=== PATIENT | male | born 1955 | race Two or more races ===

== ENCOUNTER → 2024-11-21 | Outpatient (CLI) | payer MEDICARE, MEDICAID, SELFPAY | END | disposition home or self-care (01) | LOC: SWHD 09:02 | PROVIDERS: Visit Provider Student in an Organized Health Care Education/Training Program | DX: L97.821 Non-pressure chronic ulcer of other part of left lower leg limited to breakdown of skin (principal); S81.802A Unspecified open wound, left lower leg, initial encounter; X58.XXXA Exposure to other specified factors, initial encounter; E11.40 Type 2 diabetes mellitus with diabetic neuropathy, unspecified; I10 Essential (primary) hypertension | CPT/HCPCS: 99214; A9270; G0463 ==

== ENCOUNTER → 2024-12-05 | Outpatient (CLI) | payer MEDICARE, MEDICAID, SELFPAY | END | disposition home or self-care (01) | LOC: SWHD 09:53 | PROVIDERS: Visit Provider Student in an Organized Health Care Education/Training Program | DX: E11.622 Type 2 diabetes mellitus with other skin ulcer (principal); L97.821 Non-pressure chronic ulcer of other part of left lower leg limited to breakdown of skin; S81.802A Unspecified open wound, left lower leg, initial encounter; X58.XXXA Exposure to other specified factors, initial encounter; E11.40 Type 2 diabetes mellitus with diabetic neuropathy, unspecified; I10 Essential (primary) hypertension | CPT/HCPCS: 99213; G0463 ==

== ENCOUNTER → 2024-12-19 | Outpatient (CLI) | payer MEDICARE, MEDICAID, SELFPAY | END | disposition home or self-care (01) | PROVIDERS: PCP Internal Medicine; Referring Provider Internal Medicine; Visit Provider Student in an Organized Health Care Education/Training Program | DX: E11.622 Type 2 diabetes mellitus with other skin ulcer (principal); L97.821 Non-pressure chronic ulcer of other part of left lower leg limited to breakdown of skin; S81.802A Unspecified open wound, left lower leg, initial encounter; X58.XXXA Exposure to other specified factors, initial encounter; E11.40 Type 2 diabetes mellitus with diabetic neuropathy, unspecified; I10 Essential (primary) hypertension | CPT/HCPCS: 17250; A9270 ==

== ENCOUNTER → 2025-01-07 | Outpatient (CLI) | payer MEDICARE, MEDICAID, SELFPAY ==
--- NOTE | 2025-01-07 | XR_ITS ---
Examination: AP lateral chest 2 views Technique one AP lateral chest 2 views Exam date and time: 2024 1227 hrs. Indications: Coughing shortness of breath beginning 4 days ago. Findings: Opacity left base posteriorly consistent with pneumonia Mild vascular congestion Mild enlargement cardiac contour CABG Impression: Early pneumonia left base
== END | disposition home or self-care (01) ==
LOC: CDIM 11:15
PROVIDERS: PCP Internal Medicine; Referring Provider Nurse Practitioner Family; Visit Provider Nurse Practitioner Family
DX: J18.9 Pneumonia, unspecified organism (principal)
CPT/HCPCS: 71046

== ENCOUNTER → 2025-01-14 | Outpatient (CLI) | payer MEDICARE, MEDICAID, SELFPAY | END | disposition home or self-care (01) | LOC: SWHD 08:43 | PROVIDERS: Visit Provider Student in an Organized Health Care Education/Training Program | DX: E11.622 Type 2 diabetes mellitus with other skin ulcer (principal); S89.92XA Unspecified injury of left lower leg, initial encounter; X58.XXXA Exposure to other specified factors, initial encounter; L97.821 Non-pressure chronic ulcer of other part of left lower leg limited to breakdown of skin; M17.0 Bilateral primary osteoarthritis of knee; M19.042 Primary osteoarthritis, left hand; M19.041 Primary osteoarthritis, right hand; F17.200 Nicotine dependence, unspecified, uncomplicated; N18.32 Chronic kidney disease, stage 3b; R60.0 Localized edema; I73.9 Peripheral vascular disease, unspecified; E66.9 Obesity, unspecified | CPT/HCPCS: 99212; G0463 ==

== ENCOUNTER → 2025-03-31 | Outpatient (CLI) | payer MEDICARE, SELFPAY | END | disposition home or self-care (01) | PROVIDERS: PCP Internal Medicine; Referring Provider Internal Medicine; Visit Provider Student in an Organized Health Care Education/Training Program | DX: I87.312 Chronic venous hypertension (idiopathic) with ulcer of left lower extremity (principal); E11.69 Type 2 diabetes mellitus with other specified complication; L97.821 Non-pressure chronic ulcer of other part of left lower leg limited to breakdown of skin; L97.822 Non-pressure chronic ulcer of other part of left lower leg with fat layer exposed; I73.9 Peripheral vascular disease, unspecified; I10 Essential (primary) hypertension | CPT/HCPCS: 17250; 99213; A9270; G0463 ==

== ENCOUNTER → 2025-04-03 | Outpatient (CLI) | payer MEDICARE, MEDICAID, SELFPAY | END | disposition home or self-care (01) | LOC: SWHD 08:35 | PROVIDERS: PCP Internal Medicine; Referring Provider Internal Medicine; Visit Provider Student in an Organized Health Care Education/Training Program | DX: I87.312 Chronic venous hypertension (idiopathic) with ulcer of left lower extremity (principal); E11.69 Type 2 diabetes mellitus with other specified complication; L97.821 Non-pressure chronic ulcer of other part of left lower leg limited to breakdown of skin; L97.822 Non-pressure chronic ulcer of other part of left lower leg with fat layer exposed; I73.9 Peripheral vascular disease, unspecified; I10 Essential (primary) hypertension | CPT/HCPCS: 29581; A9270 ==

== ENCOUNTER → 2025-04-09 | Outpatient (CLI) | payer MEDICARE, MEDICAID, SELFPAY | END | disposition home or self-care (01) | LOC: SWHD 11:01 | PROVIDERS: PCP Internal Medicine; Referring Provider Internal Medicine; Visit Provider Student in an Organized Health Care Education/Training Program | DX: I87.312 Chronic venous hypertension (idiopathic) with ulcer of left lower extremity (principal); E11.69 Type 2 diabetes mellitus with other specified complication; L97.821 Non-pressure chronic ulcer of other part of left lower leg limited to breakdown of skin; L97.822 Non-pressure chronic ulcer of other part of left lower leg with fat layer exposed; I73.9 Peripheral vascular disease, unspecified; I10 Essential (primary) hypertension | CPT/HCPCS: 29581 ==

== ENCOUNTER → 2025-04-17 | Outpatient (CLI) | payer MEDICARE, MEDICAID, SELFPAY | END | disposition home or self-care (01) | PROVIDERS: PCP Internal Medicine; Referring Provider Internal Medicine; Visit Provider Student in an Organized Health Care Education/Training Program | DX: I87.312 Chronic venous hypertension (idiopathic) with ulcer of left lower extremity (principal); E11.69 Type 2 diabetes mellitus with other specified complication; L97.821 Non-pressure chronic ulcer of other part of left lower leg limited to breakdown of skin; L97.822 Non-pressure chronic ulcer of other part of left lower leg with fat layer exposed; I73.9 Peripheral vascular disease, unspecified; I10 Essential (primary) hypertension; E11.51 Type 2 diabetes mellitus with diabetic peripheral angiopathy without gangrene; Z79.85 Long-term (current) use of injectable non-insulin antidiabetic drugs; Z79.4 Long term (current) use of insulin | CPT/HCPCS: 97597; A9270 ==

== ENCOUNTER → 2025-05-27 | Outpatient (CLI) | payer MEDICARE, SELFPAY | END | disposition home or self-care (01) | PROVIDERS: PCP Internal Medicine; Referring Provider Internal Medicine; Visit Provider Student in an Organized Health Care Education/Training Program | DX: I87.312 Chronic venous hypertension (idiopathic) with ulcer of left lower extremity (principal); E11.69 Type 2 diabetes mellitus with other specified complication; L97.822 Non-pressure chronic ulcer of other part of left lower leg with fat layer exposed; L97.528 Non-pressure chronic ulcer of other part of left foot with other specified severity; I73.9 Peripheral vascular disease, unspecified; I10 Essential (primary) hypertension; E11.51 Type 2 diabetes mellitus with diabetic peripheral angiopathy without gangrene; Z79.85 Long-term (current) use of injectable non-insulin antidiabetic drugs; Z79.4 Long term (current) use of insulin | CPT/HCPCS: 97597; A9270 ==

== ENCOUNTER → 2025-06-17 | Outpatient (CLI) | payer MEDICARE, MEDICAID, SELFPAY | END | disposition home or self-care (01) | PROVIDERS: PCP Internal Medicine; Referring Provider Internal Medicine; Visit Provider Student in an Organized Health Care Education/Training Program | DX: I87.312 Chronic venous hypertension (idiopathic) with ulcer of left lower extremity (principal); E11.69 Type 2 diabetes mellitus with other specified complication; L97.822 Non-pressure chronic ulcer of other part of left lower leg with fat layer exposed; L97.528 Non-pressure chronic ulcer of other part of left foot with other specified severity; I73.9 Peripheral vascular disease, unspecified; I10 Essential (primary) hypertension; E11.51 Type 2 diabetes mellitus with diabetic peripheral angiopathy without gangrene; Z79.85 Long-term (current) use of injectable non-insulin antidiabetic drugs; Z79.4 Long term (current) use of insulin | CPT/HCPCS: 99214; A9270; G0463 ==

== ENCOUNTER → 2025-06-17 | Outpatient (CLI) | payer MEDICARE, MEDICAID, SELFPAY ==
--- NOTE | 2025-06-17 10:01 | EKG_ITS ---
[facility] Test Date: 2025-06-17 Pat Name: JULIANA SANDERS Department: Room: - Gender: Male [employer] Building: [place] : 1955 Requested By: Melanie Gonzalez Order Number: [id number] Reading MD: Melanie Gonzalez Measurements Intervals [place] Rate: 93 P: 50 MA: 170 QRS: 10 QRSD: 71 T: -1 QT: 335 QTc: 417 Interpretive Statements SINUS RHYTHM WITH OCCASIONAL SUPRAVENTRICULAR PREMATURE COMPLEXES LOW QRS VOLTAGE IN EXTREMITY LEADS [QRS DEFLECTION < 0.5 mV IN LIMB LEADS] Compared to ECG 04/24/2024 10:42:43 No significant changes /store/S0/[id number]/ecg/[id number].pdf
[2025-06-17 10:26] LABS: Basophils # (Auto) 0.1 Thou/mm3 (0.0-0.2); Basophils % (Auto) 1 % (0-2.5); Eosinophils # (Auto) 0.2 Thou/mm3 (0.0-0.5); Eosinophils % (Auto) 2 % (0-10); Hematocrit 43.4 % (41.0-53.0); Hemoglobin 13.7 g/dL (13.5-16.0); Immature Granulocytes Auto 0.04 Thou/mm3 (0.00-0.00); Lymphocytes # (Auto) 1.8 Thou/mm3 (1.0-4.8); Lymphocytes % (Auto) 18 % (10-50); Mean Corpuscular HGB Conc 31.6 g/dl (31.0-37.0); Mean Corpuscular Hemoglobin 27.1 pg (25.0-35.0); Mean Corpuscular Volume 86 fL (80-100); Monocytes # (Auto) 0.7 Thou/mm3 (0.0-0.8); Monocytes % (Auto) 7 % (0-12); Neutrophils # (Auto) 7.4 Thou/mm3 (1.8-7.7); Neutrophils % (Auto) 73 % (37-80); Nucleated Red Blood Cell # 0.00 Thou/mm3 (0.00-0.00); Nucleated Red Blood Cell % 0 /100 WBC (0); Platelet Count 274 Thou/mm3 (140-440); RDW Standard Deviation 45.1 fL (35.1-43.9); Red Blood Count 5.06 Miln/mm3 (4.50-5.90); White Blood Count 10.1 Thou/mm3 (3.8-10.6)
[2025-06-17 10:42] LABS: Alanine Aminotransferase 36 U/L (10-49); Albumin, Serum 3.9 gm/dL (3.4-4.8); Albumin/Globulin Ratio 1.0 (1.2-2.2); Alkaline Phosphatase 267 U/L (46-116); Anion Gap 8 (7-16); Aspartate Amino Transferase 53 U/L (0-34); BUN/Creatinine Ratio 13 Ratio (12-20); Bilirubin,Total 0.7 mg/dL (0.3-1.2); Blood Urea Nitrogen 12 mg/dL (9-23); Calcium 10.0 mg/dL (8.3-10.6); Calcium (Corrected) 10.1 mg/dL (8.5-10.1); Carbon Dioxide 28.2 mMol/L (20.0-31.0); Chloride 98 mMol/L (98-107); Creatinine (Component) 0.9 mg/dL (0.6-1.3); Globulin 3.8 gm/dL (2.3-3.5); Osmolality,Calculated 284 (275-295); Potassium 5.2 mMol/L (3.4-5.1); Sodium 134 mMol/L (136-145); Total Protein 7.7 gm/dL (5.7-8.2); eGFR > 60 See Note
[2025-06-17 10:45] LABS: INR 1.0 (0.9-1.3); Partial Thromboplastin Time 31.9 Seconds (22.0-36.0); Prothrombin Time 11.4 Seconds (9.0-12.2)
[2025-06-17 10:51] LABS: Glucose 407 mg/dL (74-106)
== END | disposition home or self-care (01) ==
PROVIDERS: PCP Internal Medicine; Referring Provider Student in an Organized Health Care Education/Training Program; Visit Provider Student in an Organized Health Care Education/Training Program
DX: Z01.818 Encounter for other preprocedural examination (principal); I73.9 Peripheral vascular disease, unspecified; Z79.01 Long term (current) use of anticoagulants; Z01.810 Encounter for preprocedural cardiovascular examination
CPT/HCPCS: 36415; 80053; 85025; 85610; 85730; 93005

== ENCOUNTER 2025-08-07 02:34 | Emergency (ER) | payer MEDICARE, MEDICAID, SELFPAY ==
[2025-08-07] VITALS (8 sets, daily range): BP systolic 138–174; BP diastolic 55–91; PULSE 92–110; RESP 16–97; TEMP 36.9–37.1; O2SAT 96–99; BMI 27.1
--- NOTE | 2025-08-07 02:46 | PD.EDFALL ---
ED Fall Injury RME/HPI General Chief Complaint: Fall Stated Complaint: FALL Time Seen by Provider: 08/07/25 03:12 Arrival date/time: 08/07/25 02:34 RME / HPI RME / HPI Narrative: See MDM for Dr. Coreas's HPI documentation. Related Data Home Medications ?Medication ?Instructions ?Recorded ?Confirmed Isosorbide Mononitrate * (IMDUR *) 30 mg PO QAM ##0 09/01/17 04/29/21 clopidogrel 75 mg tablet (Plavix) 75 mg PO QDAY #0 tabs 09/01/17 04/29/21 furosemide 20 mg tablet (Lasix) 20 mg PO QDAY #0 tabs 09/01/17 04/29/21 metoprolol succinate 50 mg 50 mg PO QDAY ##0 09/01/17 04/29/21 tablet,extended release 24 hr (Toprol XL) omeprazole 20 mg capsule,delayed 40 mg PO QDAY ##0 09/01/17 04/29/21 release simvastatin 80 mg tablet (Zocor) 80 mg PO HS #0 tabs 09/01/17 04/29/21 enalapril maleate 10 mg tablet 10 mg PO QPM 09/21/20 04/29/21 gabapentin 100 mg capsule 100 mg PO TID 09/21/20 04/29/21 meclizine 25 mg tablet 25 mg PO [id number] PRN Dizziness 09/21/20 04/29/21 rivaroxaban 20 mg tablet (Xarelto) 20 mg PO QPM 09/21/20 04/29/21 insulin aspart U-100 100 unit/mL unit subcut AC 04/29/21 (3 mL) subcutaneous pen (Novolog FlexPen U-100 Insulin aspart) insulin degludec 100 unit/mL (3 50 unit subcut BID 04/29/21 04/29/21 mL) subcutaneous pen (Tresiba FlexTouch U-100 insulin) liraglutide 0.6 mg/0.1 mL (18 mg/3 1.8 mg subcut QMORNING 04/29/21 04/29/21 mL) subcutaneous pen injector (Victoza 2-Lawrence) Allergies Allergy/AdvReac Type Severity Reaction Status Date / Time No Known Allergies Allergy Verified 04/29/21 22:41 Review of Systems Review of Systems Systems Reviewed: All systems reviewed, normal except as documented Past Medical History Past Medical History NEUROLOGIC: Positive Neurological Disorders and Cerebrovascular Accident (mild stroke 4-5 yrs ago- my eyes started getting wacko. Nothing affected); Negative Seizures CARDIAC: Positive Cardiac Disorders, Myocardial Infarction (2009), Coronary Artery Disease, Atherosclerotic Heart Disease and Hypertension; Negative Congestive Heart Failure RESPIRATORY: Negative Chronic Obstructive Pulmonary Disease (COPD) or Asthma GASTROINTESTINAL: Positive Gastrointestinal Disorders, Gall Bladder Disease and Hiatal Hernia GENITOURINARY: Negative Genitourinary Disorders or Renal Disease MUSCULOSKELETAL: Positive Musculoskeletal Disorders ENT: Positive Cataracts ENDOCRINE: Positive Endocrine Disorders, Diabetes Mellitus Type 1 and Diabetes Mellitus Type 2 HEMATOLOGIC: Negative Blood Disorders or Sickle Cell Disease PSYCHO/SOCIAL: Positive Depression OTHER HISTORY: Positive Falls and Blood Transfusions; Negative Blood Transfusion Reaction or Anesthesia Reactions Surgical History SURGICAL: Positive Cardiac Surgery, Open Heart Surgery, Coronary Artery Bypass Graft (x5 bypass- 2009), Ear Surgery and Eye Surgery (fix the hole in right eye) Social History SMOKING STATUS: Never smoker SECOND HAND EXPOSURE: No SUBSTANCE USE: does not use ED Exam Narrative Physical exam: See MDM for Dr. Coreas's physical exam documentation. Course Quality Measures none Orders Category Date Time Status CT Screening NOW Care 08/07/25 04:28 Active Saline [Insert IV] NOW Care 08/07/25 04:27 Active Straight [In and Out Catheter] X1 Care 08/07/25 04:[address] chest abdomen pelvis wo Stat Exams 08/07/25 04:[address] lower extremity BI w Stat Exams 08/07/25 04:27 Ordered XR chest 1V portable Stat Exams 08/07/25 04:27 Ordered Alcohol, Blood Medical Stat Lab 08/07/25 04:29 Ordered Bilirubin,Direct Stat Lab 08/07/25 04:29 Ordered Blood Culture (Lab) Stat Lab 08/07/25 04:29 Ordered CBC Stat Lab 08/07/25 04:29 Ordered CMP [Comprehensive Metabolic Panel] Stat Lab 08/07/25 04:29 Ordered CRP [C-Reactive Protein] Stat Lab 08/07/25 04:29 Ordered Drug Screen,Urine Stat Lab 08/07/25 04:29 Ordered ESR [Sed Rate (ESR)] Stat Lab 08/07/25 04:29 Ordered Lactate (Lactic Acid) Stat Lab 08/07/25 04:29 Ordered Magnesium Stat Lab 08/07/25 04:29 Ordered Procalcitonin Stat Lab 08/07/25 04:29 Ordered UA, C/S IF [Urinalysis, C/S if Indicated] Stat Lab 08/07/25 04:29 Ordered Morphine* Inj Med 08/07/25 03:12 Discontinued 8 mg IM X1 ONE Vital Signs Vital signs: Vital Signs Temperature 98.5 F 08/07/25 02:41 Pulse Rate 110 H 08/07/25 02:41 Respiratory Rate 18 08/07/25 02:41 Blood Pressure 173/71 H 08/07/25 02:41 Pulse Oximetry (%) 98 08/07/25 02:41 Oxygen Delivery Method Room Air 08/07/25 02:41 Fall MDM Narrative MDM Narrative:: This section includes all my notes and documentations, including HPI, PE, and ED course. Avila Coreas MD HPI: 69-year-old male here to be evaluated after a fall just [employer] at home. Recently, on 07/24/2025, left BKA performed at [place]. Just [employer], he fell trying to get out of bed. He landed on his buttocks and back. No head injury or loss of consciousness. He reports severe back pain. No fever chills or aches or malaise. No other complaints. ROS: All negative except as documented in HPI. Physical Exam: General:? Alert and oriented.? No acute distress when remaining still. Eyes:? Conjunctivae and lids clear.? EOMI.? PERRL. ENT:? No signs of head trauma. Neck:? Supple.? No tenderness. Heart:? RRR. Lungs:? No respiratory distress.? Good air movement.? No rhonchi, wheezing, rales.? Chest:? No tenderness. Abdomen:? Soft and nontender.? Normal bowel sounds.? No distension.? No rebound or guarding.? Back: Equivocal tenderness, difficult to localize Skin:? Warm and dry.? Neuro:? Alert and oriented X 3.? Cranial Nerves II-XII grossly intact.? No peripheral motor deficits. Musculoskeletal: Left BKA stump remarkable for erythema/calor/edema/tenderness. All other major joints and bones are not tender with no limited ROM. I reviewed EMS notes. I ordered IVF, morphine 4 mg IV, and diagnostic tests. At 6 AM on 08/07/2025, the care of the patient was transferred to Dr. Stark. Avila Coreas MD Patient data External records reviewed:: [facility] previous records (/Per chart review, patient was admitted here on 04/29/21 for ELAINE.) and EMS form Clinical information provided by:: patient and EMS Social determinants that could affect healthcare access:: none Patient has the following chronic illnesses:: CAD, HTN, DM How is presenting disease/condition affected by chronic disease/condition?: uneffected by Evaluation data The following diagnostics were reviewed and interpreted by me:: lab results and radiology exam(s) Lab and/or radiology exams considered but not ordered:: none Interpretation Summary: Diagnostic tests are pending. Medications / Prescriptions Medications or Prescriptions considered but not ordered:: none Medication administrations:: Medication Administration History Discontinued Medications Morphine Sulfate (Morphine Sulf Inj 4 Mg/Ml Vial) 8 mg IM X1 ONE Stop: 08/07/25 03:13 I ordered IVF and morphine 4 mg IV. Consultations Consultation(s) initiated? (list below): No Diagnosis Fall Differential Diagnosis: syncope, compression fracture, concussion with loss of consciousness, concussion without loss of consciousness and other (Sepsis) Most likely diagnosis given after review of the tests above:: Diagnostic tests are pending. Admission Indicated Admission indicated?: not indicated Explain why admission is indicated or not indicated:: Diagnostic tests are pending. Admission Request Was there a request for admission?: No Disposition Plan Disposition Plan: other (specify) (Signed out to Dr. Stark at 6 AM.) Discharge Plan Prescriptions/Referrals Prescriptions/Med Rec: No Action metoprolol succinate [Toprol XL] 50 MG tablet extended release 24 hr 50 mg PO QDAY Qty: 0 clopidogrel [Plavix] 75 MG tablet 75 mg PO QDAY Qty: 0 simvastatin [Zocor] 80 MG tablet 80 mg PO HS Qty: 0 omeprazole 20 MG capsule,delayed release(DR/EC) 40 mg PO QDAY Qty: 0 furosemide [Lasix] 20 MG tablet 20 mg PO QDAY Qty: 0 Isosorbide Mononitrate * (IMDUR *) 30 MG TAB.ER.24H 30 mg PO QAM Qty: 0 enalapril maleate 10 mg Tablet 10 mg PO QPM meclizine 25 mg tablet 25 mg PO [id number] PRN (Reason: Dizziness) gabapentin 100 mg Capsule 100 mg PO TID Xarelto 20 mg Tablet 20 mg PO QPM insulin aspart U-100 [Novolog FlexPen U-100 Insulin] 100 unit/mL (3 mL) Insulin Pen SUBCUT AC Rx Instructions: sliding scale TID before meals Victoza 2-Lawrence 0.6 mg/0.1 mL (18 mg/3 mL) pen injector 1.8 mg SUBCUT QMORNING Patient Comments: INJECT 1.2MG SUBCUTANEOUSLY EVERY DAY Tresiba FlexTouch U-100 100 unit/mL (3 mL) insulin pen 50 unit SUBCUT BID Patient Comments: INJECT 48 UNIT BY SUBCUTANEOUS ROUTE ONCE PER INSULIN PROTOCOL Problem List Clinical Impression: Fall, BKA stump complication Patient/Caregiver Discharge Instructions Print Language: Hong Konger
--- NOTE | 2025-08-07 04:27 | XR_ITS ---
EXAMINATION: AP chest single view TECHNIQUE: AP portable upright chest single view Date and time: August 07, 2025, 0527 hours, comparison January 07, 2025 INDICATIONS: Shortness of breath today. FINDINGS: Normal heart size CABG. Obscuration detail left hemidiaphragm. Right lung clear. Severe osteopenia IMPRESSION: Recommend lateral chest view follow-up to confirm left base pneumonia
--- NOTE | 2025-08-07 04:27 | XR_ITS ---
Examination: CT bilateral lower extremities with intravenous contrast 2-D sagittal reconstructions. 2-D coronal reconstructions. 3-D reconstructions. Date and time of exam: August 07, 2025, 0755 hours INDICATIONS: Left leg stump redness swelling and pain today CTDI: vol (mGy): 11.6 DLP: (mGycm): 958 Technique: Multiple 1.25 mm axial sections of the bilateral lower extremities post intravenous administration 60 cc Isovue-370 have been obtained. 2-D sagittal and coronal reconstructions have been obtained. 3-D reconstructions have been obtained. Low dose protocols were performed. One or more of the following dose reduction techniques were used; automated exposure control, adjustment of the mA and/or KV according to patient size, use of iterative reconstruction technique. Findings: Mild small bowel ileus Right common iliac artery stent Intact urinary bladder Severe osteopenia Bilateral superficial femoral artery stents Soft tissue infection with air densities below the knee amputation stump on the left with cortical bone destruction involving the tibial stump surface No fluid-filled drainable abscess IMPRESSION: Large area for soft tissue infection with gas-forming organisms at the left amputation stump Osteomyelitis at the tibial amputation stump surface, consider MRI left lower leg follow-up
--- NOTE | 2025-08-07 04:28 | XR_ITS ---
Examination: CT chest, without intravenous contrast. CT abdomen, without intravenous contrast. CT pelvis, without intravenous contrast. 2-D sagittal and coronal reconstructions. 3-D reconstructions. Date and time of exam: August 07, 2025, 0749 hours INDICATIONS: Ground-level fall today with injury to the chest and abdomen, chest pain abdomen pain CTDI vol (mgy) 9.65 DLP (MGycm) 837 Technique: Multiple CT images, 3.0 mm slice thickness, obtained chest, abdomen, pelvis, with the high-resolution 64 slice scanner.. Sagittal and coronal 2-D reconstructions are obtained. 3-D reconstructions Low dose protocols were performed. One or more of the following dose reduction techniques were used; automated exposure control, adjustment of the mA and/or KV according to patient size, use of iterative reconstruction technique. Findings: Thoracic aorta pulmonary arteries appear intact on this noncontrast study No hemopericardium Significant coronary artery calcification No pneumothorax. Opacity left base, consider pneumonia or pulmonary contusion Minimal left pleural disease The manubrium and the body of the sternum intact No thoracic vertebral body compression fractures Acute nondisplaced fracture right seventh rib No liver splenic or renal laceration No pancreatic mass Aorta normal size, no free blood in the abdomen or pelvis 2 mm right renal calculus Negative for pneumoperitoneum 29 mm umbilical hernia containing incarcerated fat Mildly fluid distended small bowel loops Urinary bladder intact Hips bones of the pelvis intact IMPRESSION: Thoracic aorta pulmonary arteries intact Suspicious for acute nondisplaced fracture right seventh rib anteriorly, clinical correlation advised No pneumothorax pulmonary contusion or hemothorax No abdominal parenchymal laceration Abdominal aorta intact No free blood in the abdomen or pelvis. 2 mm nonobstructing right renal calculus Fluid distended small bowel loops, differential would include ileus, enteritis, if early small bowel obstruction is a clinical consideration, recommend 3 way abdominal series follow-up
[2025-08-07] MEDS: SODIUM CHLORIDE 0.9% 1000 ML 1,000 ML 999 ML IV (04:56)
[2025-08-07] MEDS: MORPHINE SULF INJ 4 MG/ML VIAL IV (04:56)
[2025-08-07 05:42] LABS: Lactate (Lactic Acid) 1.8 mMol/L (0.4-2.0)
[2025-08-07 05:54] LABS: Basophils # (Auto) 0.1 Thou/mm3 (0.0-0.2); Basophils % (Auto) 0 % (0-2.5); Eosinophils # (Auto) 0.0 Thou/mm3 (0.0-0.5); Eosinophils % (Auto) 0 % (0-10); Hematocrit 33.3 % (41.0-53.0); Hemoglobin 10.9 g/dL (13.5-16.0); Immature Granulocytes Auto 0.30 Thou/mm3 (0.00-0.00); Lymphocytes # (Auto) 1.8 Thou/mm3 (1.0-4.8); Lymphocytes % (Auto) 7 % (10-50); Mean Corpuscular HGB Conc 32.7 g/dl (31.0-37.0); Mean Corpuscular Hemoglobin 27.3 pg (25.0-35.0); Mean Corpuscular Volume 84 fL (80-100); Monocytes # (Auto) 2.1 Thou/mm3 (0.0-0.8); Monocytes % (Auto) 8 % (0-12); Neutrophils # (Auto) 22.9 Thou/mm3 (1.8-7.7); Neutrophils % (Auto) 84 % (37-80); Nucleated Red Blood Cell # 0.00 Thou/mm3 (0.00-0.00); Nucleated Red Blood Cell % 0 /100 WBC (0); Platelet Count 255 Thou/mm3 (140-440); RDW Standard Deviation 44.3 fL (35.1-43.9); Red Blood Count 3.99 Miln/mm3 (4.50-5.90); White Blood Count 27.1 Thou/mm3 (3.8-10.6)
[2025-08-07 06:31] LABS: Sed Rate (ESR) 116 mm/hr (0-20)
[2025-08-07 06:34] LABS: Collection Type, Urine Clean Catch
[2025-08-07 06:37] LABS: Alanine Aminotransferase 13 U/L (10-49); Albumin, Serum 3.4 gm/dL (3.4-4.8); Albumin/Globulin Ratio 0.9 (1.2-2.2); Alcohol, Blood Medical < 3.0 mg/dL (0-10.0); Alkaline Phosphatase 218 U/L (46-116); Anion Gap 12 (7-16); Aspartate Amino Transferase 16 U/L (0-34); BUN/Creatinine Ratio 12 Ratio (12-20); Bilirubin,Direct 0.5 mg/dL (0.0-0.3); Bilirubin,Total 1.1 mg/dL (0.3-1.2); Blood Urea Nitrogen 13 mg/dL (9-23); C-Reactive Protein 18.2 mg/dL (0.0-0.9); Calcium 8.9 mg/dL (8.3-10.6); Calcium (Corrected) 9.4 mg/dL (8.5-10.1); Carbon Dioxide 25.9 mMol/L (20.0-31.0); Chloride 91 mMol/L (98-107); Creatinine (Component) 1.1 mg/dL (0.6-1.3); Estimated Creatinine Clearance 61.6 mL/min (>60); Globulin 3.9 gm/dL (2.3-3.5); Magnesium 1.7 mg/dL (1.6-2.6); Osmolality,Calculated 284 (275-295); Potassium 3.9 mMol/L (3.4-5.1); Procalcitonin 0.37 ng/ml (0.0-0.49); Sodium 129 mMol/L (136-145); Total Protein 7.3 gm/dL (5.7-8.2); eGFR > 60 See Note
[2025-08-07 06:39] LABS: Glucose 555 mg/dL (74-106)
[2025-08-07 07:02] LABS: Amphetamine/Methamp Scrn,U Negative (Negative); Barbiturate Screen,Urine Negative (Negative); Benzodiazepines Screen,Urine Negative (Negative); Benzoylecgonine Screen, Ur Negative (Negative); Fentanyl Screen,Urine Negative (Negative); Opiate Screen,Urine Positive (Negative); THC Screen,Urine Negative (Negative)
[2025-08-07 07:18] LABS: Bilirubin,Urine Negative (Negative); Blood,Urine Negative (Negative); Clarity,Urine Clear (Clear/Hazy); Color,Urine Lt-Yellow (Lt Yel-Yel); Culture Indicated,Urine Not Indicated; Glucose, Urine 4+ (Negative); Ketones,Urine 1+ (Negative); Leukocyte Esterase,Urine Negative (Negative); Nitrite,Urine Negative (Negative); PH,Urine 5.5 (5.0-7.0); Protein,Urine Negative (Neg - Trace); RBC,Urine 1 /hpf (0-3); Specific Gravity,Urine 1.031 (1.001-1.035); Squamous Epithelial Cell,Urine 1 /hpf (0-5); Urobilinogen,Urine Negative mg/dL (0.0-1.0); WBC,Urine < 1 /hpf (0-5)
[2025-08-07 07:24] LABS: INR 1.1 (0.9-1.3); Partial Thromboplastin Time 33.7 Seconds (22.0-36.0); Prothrombin Time 11.9 Seconds (9.0-12.2)
[2025-08-07] MEDS: PIPER/TAZO 3.375 GM PREMIX 3.375 GM/50 ML BAG IV (07:30)
[2025-08-07] MEDS: SODIUM CHLORIDE 0.9% 1000 ML 2,121 ML 2121 ML IV (07:31)
[2025-08-07] MEDS: INSULIN HUM REGULAR 1 UNIT/0.01 ML (PER UNIT) 12 UNIT SC (07:31)
[2025-08-07 07:34] LABS: B-Type Natriuretic Peptide 120 pg/mL (0-100)
[2025-08-07 07:36] LABS: Magnesium 1.7 mg/dL (1.6-2.6); Phosphorous 2.6 mg/dL (2.4-5.1); Troponin I < 0.020 ng/mL (0.0-0.045)
[2025-08-07] MEDS: VANCOMYCIN/D5W 1,250 MG IVPB 250 ML 120 MG IV (08:46)
--- NOTE | 2025-08-07 10:25 | EDNOTE_ITS ---
Emergency Room Addendum Addendum Narrative: 0600: Care assumed from Dr. Coreas, the previous shift emergency physician. Past medical, surgical, social and family history reviewed. Vitals and home medications reviewed. I will assume the care of the patient at this time, pending imaging and final disposition. Please refer to the emergency department record for history and examination from initial visit.?The following addendum documentation note is intended to reflect any pending information, findings, or radiology results not included in the patient?s initial chart. 1025a: I spoke with transfer nurse and aware of plan to transfer back to [facility] where patient had recent BKA by boat mechanic Dr. Clifton. 1145a: I spoke with transfer nurse, ortho Dr. Barr, and vascular surgeon Dr. Gong at [facility]. Discussed patients PMHx, HPI, ED course, exam findings, labs, and radiology results. Evidently patient had the surgery performed by vascular surgeon Dr. Melani Capone and he is currently not on-call. Ortho Dr. Barr does not accept the patient for transfer. Vascular surgeon Dr. Gong advised we consult with our general surgeon and if he is unable to take the patient he will accept for transfer. 1250p: I spoke with surgeon Dr. Frost. Discussed patients PMHx, HPI, ED course, exam findings, labs, and radiology results. Advised transferring the patient back to Dr. Capone at [facility] for post operative complications. 1254p: I spoke with our transfer nurse and made aware that our surgeon Dr. Frost recommended transfer back to [facility]. States she will let [facility] know. 1315p: Patient has been accepted by vascular surgeon Dr. Gong at [facility].
--- NOTE | 2025-08-07 10:40 | PC.CC ---
Addendum entered by Yolanda Luis RN 08/07/25 14:24: Dr Barr and Dr Stark spoke, Dr. Barr stated Vascular sx performed the surgery. Dr. Barr did not accept patient. Irina contacted Dr. Gong vascular oncall, he stated a general surgeon can follow this patient. However DR. Stark explained its a complication of the surgery and will need eval for a revision of the bka. Dr. Gong did not accept patient at this time. I explained I will reach out to my admin in regards to EMTALA. During this time, Dr. Stark stated he reached out to Dr. Frost (gen surg) who could not provide services to the patient. Called [facility] back and informed them that Dr. Frost could not follow the patient. Dr. Gong accepted the patient. ED aware, transport arranged. Addendum entered by Yolanda Luis RN 08/07/25 11:55: 1143: received call back from Irina villarreal/ [facility]. She requested to speak to Dr. Stark. She attempted to do a peer to peer with Dr. Barr ortho but unable to do so at this time. She will call back when Dr. Barr is available. Addendum entered by Yolanda Luis RN 08/07/25 10:52: 1052: spoke to Irina with [facility] to initiate transfer request. She stated she will review the clinicals call back Original Note: received call from Dr. Stark to request transfer to [facility] for ortho. Pt had a BKA on 07/24/25 and is now having complications after pt fell. Clinicals sent to [facility]
--- NOTE | 2025-08-07 14:45 | PC.NURSE ---
report called to gem fonseca from [facility] via telephone
== END 2025-08-07 14:51 | disposition short-term general hospital (02) ==
LOC: SERX 07:25
PROVIDERS: Emergency Medicine; Emergency Provider Family Medicine; PCP Internal Medicine
DX: T87.89 Other complications of amputation stump (principal); S29.9XXA Unspecified injury of thorax, initial encounter; S39.91XA Unspecified injury of abdomen, initial encounter; R06.02 Shortness of breath; M79.89 Other specified soft tissue disorders; W06.XXXA Fall from bed, initial encounter; Y92.003 Bedroom of unspecified non-institutional (private) residence as the place of occurrence of the external cause; Y83.5 Amputation of limb(s) as the cause of abnormal reaction of the patient, or of later complication, without mention of misadventure at the time of the procedure; Z89.512 Acquired absence of left leg below knee; Z75.1 Person awaiting admission to adequate facility elsewhere
CPT/HCPCS: 36415; 71045; 71250; 73701; 74176; 80053; 80307; 80320; 81001; 82248; 83605; 83735; 83880; 84100; 84145; 84484; 85025; 85610; 85652; 85730; 86140; 87040; 87070; 87205; 96361; 96365; 96366; 99285; A4649; J1815; J2270; J2543; J3373; J7030; Q9967; G0480